=== PATIENT | female | born 1955 | race Caucasian/White ===

== ENCOUNTER 2021-12-05 06:46 | Day surgery (SDC) | payer OTHER, MEDICARE ==
[~2021-12-05 06:46] MED LIST: Lactated Ringers 1,000 ML IV SCH; ceFAZolin 2 GM in Premix Bag 1 BAG IV ONE
[2021-12-05] MEDS ORDERED: Albuterol 0.083% 2.5 MG/3 ML Neb Soln NEB PRN (06:49)
[2021-12-05] MEDS ORDERED: Naloxone 0.4 MG/ML SDV IVPUSH PRN (06:49)
[2021-12-05] MEDS ORDERED: Metoclopramide 10 MG/2 ML SDV IVPUSH PRN (06:49)
[2021-12-05] MEDS ORDERED: Ondansetron 4 MG/2 ML SDV IVPUSH PRN (06:49)
[2021-12-05] MEDS ORDERED: fentaNYL 50 MCG/ML SDV IVPUSH PRN (06:49)
[2021-12-05] MEDS ORDERED: HYDROmorphone 1 MG/ML Syringe IVPUSH PRN (06:49)
[2021-12-05] MEDS ORDERED: Bupivacaine 0.5% 30 ML SDV ONE (07:17)
[2021-12-05] MEDS ORDERED: Iopamidol 408 MG/ML 20 ML SDV ONE (07:17)
[2021-12-05] MEDS ORDERED: Heparin Sodium 100 Units/ML 3 ML Syringe ONE (07:17)
[2021-12-05] MEDS ORDERED: Lidocaine 1% 20 ML MDV ONE (07:17)
[2021-12-05] MEDS ORDERED: Ondansetron 4 MG/2 ML SDV ONE ×2 (07:21→09:03)
[2021-12-05] MEDS ORDERED: Propofol 200 MG/20 ML SDV ONE (07:21)
[2021-12-05] MEDS ORDERED: Lidocaine 2% 5 ML SDV ONE (07:21)
[2021-12-05] MEDS ORDERED: fentaNYL 100 MCG/2 ML SDV ONE (07:21)
[2021-12-05] MEDS ORDERED: Phenylephrine HCl In 0.9% NaCl 1 MG/10 ML Vial ONE (08:01)
[2021-12-05] MEDS ORDERED: ePHEDrine 50 MG/ML SDV ONE (08:10)
[2021-12-05] MEDS ORDERED: Dexamethasone 4 MG/ML 5 ML MDV ONE (08:20)
== END 2021-12-05 11:30 | disposition home or self-care (01) ==
LOC: MW.SDS 06:46
PROVIDERS: ATTEND Surgery
DX: C53.9 Malignant neoplasm of cervix uteri, unspecified (principal); E11.9 Type 2 diabetes mellitus without complications; E78.00 Pure hypercholesterolemia, unspecified; I10 Essential (primary) hypertension; Z88.8 Allergy status to other drugs, medicaments and biological substances; Z88.2 Allergy status to sulfonamides; Z79.899 Other long term (current) drug therapy; Z79.4 Long term (current) use of insulin
CPT/HCPCS: 36561; 71045; 76000; 82947; J0131; J0690; J1100; J1642; J2405; J2704; J3010; J3490; J7120; 00532; Q9966